=== PATIENT | male | born 1970 | race Caucasian/White ===

== ENCOUNTER 2023-11-19 17:13 | Inpatient (IN) | payer OTHER ==
[2023-11-19 17:58] VITALS: BMI 28.6
[2023-11-19] MEDS ORDERED: NALOXONE (NARCAN) HCL 4 MG/0.1 ML SPRAY NS PRN (18:49)
[2023-11-19] MEDS ORDERED: guaiFENesin 600 MG TABLET.ER (FP) PO PRN (18:49)
[2023-11-19] MEDS ORDERED: IBUPROFEN 400 MG TABLET (FP) PO PRN (18:49)
[2023-11-19] MEDS ORDERED: MAGNESIUM HYDROX 2400MG/30ML ORAL SUSPENSION 30 ML CUP PO PRN (18:49)
[2023-11-19] MEDS ORDERED: LOPERAMIDE HCL 2 MG CAPSULE PO PRN (18:49)
[2023-11-19] MEDS ORDERED: DICYCLOMINE HCL 10 MG CAPSULE PO PRN (18:49)
[2023-11-19] MEDS ORDERED: POLYETHYLENE GLYCOL (HEALTHYLAX) 3350 17 GM PACKET PO PRN (18:49)
[2023-11-19] MEDS ORDERED: MAG HYDROX/AL HYDROX/SIMETH 30 ML UNIT-DOSE CUP PO PRN (18:49)
[2023-11-19] MEDS ORDERED: BENZONATATE 200 MG CAPSULE PO PRN (18:49)
[2023-11-19] MEDS ORDERED: NALOXONE HCL 0.4 MG/ML VIAL IM PRN (18:49)
[2023-11-19] MEDS ORDERED: ONDANSETRON *ODT* 4 MG TABLET SL PRN (18:49)
[2023-11-19] MEDS ORDERED: BENZOCAINE/MENTHOL (CHLORASEPTIC ) LOZENGE MM PRN (18:49)
[2023-11-19] MEDS ORDERED: BISMUTH SUBSALICYLATE 524 MG/30 ML PO PRN (18:49)
[2023-11-19] MEDS ORDERED: IBUPROFEN 600 MG TABLET (FP) PO PRN (18:49)
[2023-11-19] MEDS ORDERED: hydrOXYzine PAMOATE 25 MG CAPSULE (FP) PO PRN (18:49)
[2023-11-19] MEDS: THIAMINE 100 MG TABLET PO SCH (22:46)
[2023-11-19] MEDS: MELATONIN 5 MG TABLETS PO SCH (22:46)
[2023-11-20] MEDS: PRENATAL VITAMINS W/ FOLIC ACID TABLET (FP) PO SCH (10:02)
[2023-11-20] MEDS: diazePAM 5 MG TABLET PO SCH (11:57)
[2023-11-20] MEDS: METHOCARBAMOL 500 MG TABLET PO PRN (11:59)
[2023-11-20] MEDS: ACETAMINOPHEN 325 MG TABLET (FP) PO PRN (11:59)
[2023-11-21] MEDS ORDERED: cloNIDine HCL 0.1 MG TABLET PO ONE (05:00)
[2023-11-21] MEDS: cloNIDine HCL 0.1 MG TABLET PO ONE (14:54)
[2023-11-22] MEDS: diazePAM 5 MG TABLET PO SCH (05:23)
[2023-11-22] MEDS: diazePAM 5 MG TABLET PO PRN (10:24)
[2023-11-22] MEDS: amLODIPine BESYLATE 10 MG TABLET (FP) PO SCH (12:25)
[2023-11-23] MEDS: diazePAM 5 MG TABLET PO SCH (05:46)
[2023-11-23] MEDS: METOPROLOL TARTRATE 25 MG TABLET (FP) PO ONE (22:16)
[2023-11-24] MEDS: diazePAM 5 MG TABLET PO ONE (05:51)
[2023-11-24 08:45] VITALS: BP 144/81; PULSE 60; RESP 20; TEMP 97.6
== END 2023-11-24 10:00 | disposition home or self-care (01) | DRG 772 ==
LOC: YASAS 17:13 → Y3N 11-20 01:25
PROVIDERS: ADMIT Allergy & Immunology; ATTEND Surgery
PROC: HZ42ZZZ Group Counseling for Substance Abuse Treatment, Cognitive-Behavioral (ICD-10-PCS; principal; 2023-11-20)
DX: F10.230 Alcohol dependence with withdrawal, uncomplicated (principal); F14.20 Cocaine dependence, uncomplicated; F12.20 Cannabis dependence, uncomplicated; F17.210 Nicotine dependence, cigarettes, uncomplicated; F19.24 Other psychoactive substance dependence with psychoactive substance-induced mood disorder; I10 Essential (primary) hypertension
CPT/HCPCS: 0241U-QW; 80305; 80307; 93005; 93010